=== PATIENT | female | born 1955 | race Caucasian/White ===

== ENCOUNTER 2016-12-07 09:05 | Inpatient (IN) ==
[2016-12-06] MEDS: Ringers Solution, Lactated 1,000 ML IVC SCH (16:25)
[2016-12-07] MEDS ORDERED: Lidocaine -MPF 4% 5 ML AMPUL ONE (09:12)
[2016-12-07] MEDS ORDERED: *HR* Propofol 200 MG/20 ML VIAL IVP ONE (09:13)
[2016-12-07] MEDS ORDERED: *HR* FentaNYL (PF) 100 MCG/2 ML VIAL ONE (09:13)
[2016-12-07] MEDS ORDERED: *HR* Succinylcholine 200 MG/10 ML VIAL IVP ONE (09:13)
[2016-12-07] MEDS ORDERED: Lidocaine -MPF 2% 2 ML VIAL ONE (09:13)
[2016-12-07] MEDS ORDERED: *HR* Rocuronium Bromide 50 MG/5 ML VIAL ONE (09:13)
[2016-12-07] MEDS ORDERED: *HR* Midazolam HCl 2 MG/2 ML VIAL ONE (09:13)
[2016-12-07] MEDS ORDERED: EPHEDrine 50 MG/ML VIAL ONE (09:14)
[2016-12-07] MEDS ORDERED: Lidocaine -MPF 1% 2 ML VIAL ID ONE (09:25)
[2016-12-07] MEDS ORDERED: CeFAZolin Pre 2,000 MG/100 ML 2,000 MG/100 ML BAG IVPB ONE (09:25)
[2016-12-07] MEDS: Ringers Solution, Lactated 1,000 ML IVC SCH ×3 (09:50→21:30)
--- NOTE | 2016-12-07 09:50 | Anesthesia Evaluation PreOp ---
Date of Encounter: 12/07/16 Time of Encounter: 09:47 - Past History Planned Operation: GEN/BSO, posterior repair Cardiac History: HTN, Hyperlipidemia Pulmonary History: Denies Any Significant HX PULPER History: Denies Any Significant HX Other Medical History: Diabetes Type II, Thyroid, Other (restless leg syndrome) Anesthesia History: No Prior Anesthetic Complications, Past Anesthesia (open shaun, open umbilical hernia, distal pancreatectomy for benign mass, splenectomy for benign mass, bilateral TKA) : No (tubal ligation) Alcohol Use: none Drug use: none Medications and Allergies Allergies allopurinol Allergy (Verified 12/27/15 11:26) Rash ciprofloxacin Adverse Reaction (Verified 12/27/15 11:26) Diarrhea morphine Adverse Reaction (Verified 12/27/15 11:26) Irritable - Meds/Allergy Pre-op Review Medications Reviewed: Yes Allergies Reviewed: Yes Beta Blockers on Current Med List: Yes If Beta Blockers taken, Date/Time (Last Dose taken): 2300 12/06/16 Anesthesia Results - Labs Laboratory Tests 11/06/16 11/06/16 11/06/16 17:05 17:05 17:05 Hgb 12.9 Hct 40.9 Plt Count 533 H Sodium 142 Potassium 3.9 BUN 22 H Creatinine 0.79 Hemoglobin A1c 6.7 H - Imaging EKG: report reviewed (NSR) Anesthesia Exam Weight: 114kg BMI 42 - HEENT Pupil (Motor): EOMI Mallampati: II Teeth: Normal Oral Opening: Greater than 3 - PULPER LOC: Oriented PULPER Motor: Normal RUE, Normal LUE, Normal RLE, Normal LLE, Normal Face PULPER Sensory: Normal: RUE, LUE, RLE, LLE, Face - Cardiac Rhythm: Regular Murmur: None - Pulmonary Breath Sounds: bilateral Clear Respiratory Effort: Symmetrical Anesthesia Assess/Plan ASA Score: 2 (obesity and hypertension) Modified [place] Scale for Level of Consciousness: Cooperative, oriented, and tranquil Anesthetic Plan: General Monitoring Plan: Standard Monitors Recovery Plan: PACU (Discussed risks of GA, questions answered and agrees to proceed.)
--- NOTE | 2016-12-07 11:17 | History & Physical Report ---
Date of Encounter: 12/07/16 Time of Encounter: 11:16 24 Hour HP Update - Instructions Instructions: If the History and Physical is less than 30 days old and was completed prior to A.M. admission and or procedure and has NOT been updated on calendar day of procedure please complete this update prior to performing procedure. - Update Patient reports changes in Medical Condition: No Changes in examination, assessment, or condition: No Changes in Medication: No Preop tests/diagnostics Reviewed: Yes Surgery Remains Indicated: Yes Consent for Planned Operative Procedure(s) Verified: Yes - Pre-Operative Checklist Preoperative Checklist Indicated: Yes Prophylactic Antibiotic Ordered: Yes Home Medications Include Beta Kushal: No Beta Kushal Taken Today (Day of Surgery): No Beta Kushal Taken Yesterday (Day Prior to Surgery): No Is VTE Prophylaxis Indicated?: Yes
[2016-12-07] MEDS ORDERED: Lidocaine/EPI 1:100k 1% 50 ML VIAL INFILT ONE (11:41)
[2016-12-07] MEDS ORDERED: Bupivacaine/Clonidine Syringe 1 EACH SYRINGE ONE (12:11)
[2016-12-07] MEDS ORDERED: *HR* Meperidine 25 MG/ML SYRINGE IVP PRN (12:16)
[2016-12-07] MEDS ORDERED: *HR* Labetalol 20 MG/4 ML SYRINGE IVP PRN (12:16)
[2016-12-07] MEDS ORDERED: Naloxone 0.4 MG/ML INJ IVP PRN ×2 (12:16→16:02)
[2016-12-07] MEDS ORDERED: *HR* HYDROmorphone (PF) 1 MG/ML SYRINGE IVP PRN ×2 (12:16→16:02)
[2016-12-07] MEDS ORDERED: Ondansetron 4 MG/2 ML VIAL IVP ONE (12:16)
[2016-12-07] MEDS ORDERED: Albuterol 2.5 MG/3 ML NEBULIZER IH ONE (12:16)
[2016-12-07] MEDS ORDERED: Lidocaine/EPI 1:200k 2% PF 10 ML VIAL ONE (12:19)
[2016-12-07] MEDS ORDERED: Ringers Solution, Lactated 1,000 ML IVC SCH (12:30)
[2016-12-07] MEDS ORDERED: Ondansetron 4 MG/2 ML VIAL ONE ×2 (12:51→16:16)
[2016-12-07] MEDS ORDERED: Dexamethasone 4 MG/ML VIAL ONE (12:51)
[2016-12-07] MEDS ORDERED: *HR* HYDROmorphone 2 MG/ML SYRINGE ONE (13:15)
[2016-12-07] MEDS ORDERED: Neostigmine Methylsulfate 3 MG/3 ML SYRINGE ONE (14:24)
--- NOTE | 2016-12-07 15:18 | Anesthesia Evaluation Post Op ---
Date of Encounter: 12/07/16 Time of Encounter: 15:17 - Vital Signs Vital Signs: Selected Entries 12/07/16 15:03 Pulse Rate 70 Respiratory Rate 14 O2 Sat by Pulse Oximetry 97 - Lungs Lungs: Clear Ascult./Percussion - Airway Airway: Non-obstructed - Cardiovascular Regular Rate - Mental Status Mental Status: Alert & Oriented, Answers Appropriately - Pain Pain Scale: 3 Pain Scale used: Numeric (1 - 10) - Nausea Vomiting Nausea Vomiting: Not Present - Hydration Hydration: Ice chips, Nguyen catheter - Discharge PostOp Status: Transfer Patient to floor
[2016-12-07] MEDS ORDERED: *HR* Dextrose 50 % in Water (Syg) 50 ML SYRINGE IVP PRN (15:43)
[2016-12-07] MEDS ORDERED: Dextrose Gel 15 GM PO PRN ×2 (15:43)
[2016-12-07] MEDS ORDERED: D5% in Water 1,000 ML IVC PRN (15:43)
--- NOTE | 2016-12-07 15:49 | OB/GYN Procedure Note ---
Hysterectomy - Diagnosis Date of procedure: 12/07/16 Hysterectomy pre-op: symptomatic prolapse Post-op diagnosis: same - Procedure Hysterectomy procedure: total abdominal hysterectomy, bilateral salpingo- oophorectomy, posterior colporrhaphy Surgeon: Omkar Ma Anesthesia Type: General Estimated blood loss (cc): 500 Complications: none Fluids: crystalloid Specimens: right ovary, uterus, cervix, left ovary, right fallopian tube, left fallopian tube, tubal contents Disposition: PACU Narrative: Patient's a 61-year-old female with pelvic prolapse presents for definitive surgical management she has had previous sling bladder suspension. She is aware of operative risks and signed appropriate consent. Description procedure: Patient was taken operating room where general anesthesia was administered. She was prepped and draped in usual sterile fashion. Scalpel was used to make pain still skin incision this was sharply taken down the rectus fascia. Fascia was incised the midline and fascial incision was extended bilaterally. Rectus muscle rectus fascia were divided and peritoneum was entered sharply. O'Yadiel-O'Null septae retractor was placed. Bowel packed out of the operative field and patient was placed in Trendelenburg position. Uterus was with the identified and was normal appearance as were both fallopian tubes and ovaries. Rubina clamps were used to grasp the cornua of the uterus on each side. LigaSure was then used to cauterize and transect infant pelvic ligaments on each side then the round ligaments and the broad ligaments on each side. Bladder flap was taken down. Curved Katerina clamps to take around the cervix along the top of the vagina these were transected and ligated with 0 Vicryl suture. The middle portion the vagina vaginal cuff was closed with 0 Vicryl. This point fascia was closed with 0 Vicryl in running manner. Again irrigation was performed hemostasis was ensured skin edges were reapproximated with yash. Attention was then turned to vaginal portion procedure. Posterior vaginal fourchette was injected with 1 % lidocaine with epinephrine. Manisha-shaped incision was made. Injected posterior vaginal submucosa with 1% lidocaine with epinephrine and dissected underneath the vaginal mucosa with Metzenbaum scissors. Vertical incision was made along posterior vaginal wall. Rectovaginal fascia was reapproximated using 2-0 Vicryl from the left to the right side. Several interrupted stitches were taken with 2-0 Vicryl to reapproximate this tissue. Excess vaginal mucosa was resected. Vaginal mucosa was reapproximated with 3-0 Vicryl in a running manner. This point all sponge and instruments counts correct patient was taken recovery in good condition.
[2016-12-07] MEDS ORDERED: Ondansetron 4 MG/2 ML VIAL IVP PRN (16:02)
[2016-12-07] MEDS ORDERED: Ringers Solution, Lactated 1,000 ML ONE (16:16)
[2016-12-07] MEDS ORDERED: Insulin LISPRO 300 UNITS/3 ML VIAL SQ SCH (16:30)
[2016-12-07] MEDS: *HR* OxyCODONE/APAP 5/325 TABLET PO PRN ×2 (17:40→21:26)
[2016-12-07] MEDS: Gabapentin 300 MG CAPSULE PO SCH (21:27)
[2016-12-08] MEDS: *HR* OxyCODONE/APAP 5/325 TABLET PO PRN ×5 (02:25→20:28)
[2016-12-08] MEDS ORDERED: *HR* Pioglitazone 30 MG TABLET PO SCH (09:00)
[2016-12-08] MEDS ORDERED: aMILoride 5 MG TABLET PO SCH (09:00)
[2016-12-08] MEDS ORDERED: Losartan/HCTZ 50-12.5 TABLET PO SCH (09:00)
[2016-12-08] MEDS ORDERED: Famotidine 20 MG TABLET PO SCH (09:00)
[2016-12-08] MEDS: Gabapentin 300 MG CAPSULE PO SCH (20:28)
[2016-12-09] MEDS: *HR* OxyCODONE/APAP 5/325 TABLET PO PRN ×3 (00:35→09:15)
--- NOTE | 2016-12-09 08:32 | Discharge Summary ---
Date of Encounter: 12/09/16 Time of Encounter: 08:32 - Discharge Diagnosis (1) S/P hysterectomy with oophorectomy Priority: Primary Status: Acute Comments: Pt doing well s/p hysterectomy and bilateral oophrectomy and rectocele repair. Doing well , will D/C home. (2) Rectocele without uterine prolapse Priority: Secondary Status: Acute - Discharge Medications Prescriptions: OxyCODONE/APAP 5/325 [Percocet 5/325 MG] 1 each PO Q4HR PRN #40 tab PRN Reason: post op pain Oxybutynin [Ditropan] 5 mg PO BID #60 tab Home Medications: Atenolol [Tenormin] 50 mg PO HS 12/07/16 [History] Atorvastatin Calcium [Lipitor] 20 mg PO DAILY 12/07/16 [History] Cholecalciferol (D-3) [Vitamin D] 2,000 unit PO DAILY 12/07/16 [History] Dapagliflozin Propanediol [Farxiga] 10 mg PO DAILY 12/07/16 [History] Exenatide Microspheres [Bydureon Pen] 2 mg SQ SA 12/07/16 [History] Famotidine [Pepcid] 40 mg PO DAILY 12/07/16 [History] Gabapentin [Neurontin] 300 mg PO HS 12/07/16 [History] Insulin Glargine,Hum.rec.anlog [Lantus Solostar] 32 unit SQ HS 12/07/16 [History ] Losartan/Hydrochlorothiazide [Hyzaar 100-25 Tablet] 1 each PO DAILY 12/07/16 [ History] Meloxicam [Mobic] 15 mg PO DAILY PRN 12/07/16 [History] Pioglitazone HCl [Actos] 30 mg PO DAILY 12/07/16 [History] Pramipexole Di-HCl [Pramipexole Dihydrochloride] 0.25 mg PO BID 12/07/16 [ History] Probenecid [Benemid] 500 mg PO DAILY 12/07/16 [History] aMILoride [Midamor] 5 mg PO DAILY 12/07/16 [History] OxyCODONE/APAP 5/325 [Percocet 5/325 MG] 1 each PO Q4HR PRN #40 tab 12/09/16 [Rx ] Oxybutynin [Ditropan] 5 mg PO BID #60 tab 12/09/16 [Rx] Allergies/Adverse Reactions: Allergies allopurinol Allergy (Verified 12/07/16 10:35) Rash cefdinir Adverse Reaction (Verified 12/07/16 10:35) Diarrhea ciprofloxacin Adverse Reaction (Verified 12/07/16 10:35) Diarrhea losartan [From Cozaar] Adverse Reaction (Verified 12/07/16 10:35) Depression morphine Adverse Reaction (Verified 12/07/16 10:35) Irritable Data Procedures and tests throughout hospitalization: Laboratory Tests 12/07/16 10:23 POC Glucose 94 H - Impressions Doing well without c/o. Reg diet without n/v. Good pain control with Percocet. Date of admission: 12/07/16 15:24 Primary care physician: Poli Hector MD - Patient Status Disposition: Home, Self-Care Condition: Good Functional capacity at discharge: independent ambulation Overall status at discharge: patient is progressing back to baseline - Discharge Instructions Follow Up With: Omkar Ma MD [Partnered Physician] - - Diet and Activity Activity: increase activity as tolerated Diet: advance to your usual diet Hospital Course [employer] Time Attestation: Total time spent providing and/or coordinating discharge services: Exam - Constitutional Vitals: Temp Pulse Resp BP Pulse Ox 98.1 F 69 14 123/77 95 12/09/16 00:43 12/09/16 00:43 12/09/16 00:43 12/09/16 00:43 12/09/16 00:43 General appearance IM: A&O X 3 - Respiratory Respiratory exam: Present: CTAB - Cardiovascular Cardiovascular exam IM: Present: RRR - GI/Abdominal GI/Abdominal exam IM: normal bowel sounds Incision: normal - Neurological Exam Neurological exam: oriented X3 - VTE Documentation of Mechanical Device: Venous foot pump, device
[2016-12-09 10:23] VITALS: BP 139/74
[2016-12-12] MEDS ORDERED: [Bydureon Pen] 2 MG SQ SCH (09:00)
== END 2016-12-09 09:30 | disposition home or self-care (01) | DRG 742 ==
LOC: SAMDAY 09:05 → 1NENUOBS 15:24
PROVIDERS: ADMIT Obstetrics & Gynecology; ATTEND Obstetrics & Gynecology